=== PATIENT | female | born 2000 | race Caucasian/White ===

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

== ENCOUNTER 2020-02-15 08:47 | Outpatient (CLI) | payer OTHER, SELFPAY ==
--- NOTE | ~2020-02-15 | US_ITS ---
EXAMINATION: US pelvic complete w TV DATE: 02/15/2020 10:03 INDICATION: Follow-up right adnexal cyst Comparison:12/06/2019 TECHNIQUE: Multiple transabdominal and endovaginal sonographic images of the pelvis performed. FINDINGS: The uterus measures 7.8 x 2.9 x 4.7 cm. The endometrial complex measures 3 mm. The right ovary measures 1.9 x 4.6 x 2.5 cm and the left ovary measures 2.5 x 3.6 x 2 cm. There are small follicles in each ovary. There is no free fluid in the pelvis. There are no abnormal masses seen on either side. IMPRESSION: 1. Normal pelvic ultrasound. Interval resolution of right adnexal cyst. Reviewed, dictated and finalized at location A. [employer]
== END 2020-02-15 08:48 | disposition home or self-care (01) ==
PROVIDERS: PCP Internal Medicine; Visit Provider Internal Medicine
DX: N83.291 Other ovarian cyst, right side (principal); N94.9 Unspecified condition associated with female genital organs and menstrual cycle
CPT/HCPCS: 76830; 76856

== ENCOUNTER 2022-11-13 13:07 | Outpatient (CLI) | payer OTHER, SELFPAY ==
--- NOTE | ~2022-11-13 | US_ITS ---
EXAMINATION: US pelvic complete w TV DATE: 11/13/2022 14:50 INDICATION: Right ovarian cyst Comparison:Ultrasound dated 02/15/2020 TECHNIQUE: Multiple transabdominal and endovaginal sonographic images of the pelvis performed. FINDINGS: The uterus measures 7.1 x 3.9 x 5.4 cm. The endometrial complex measures 8 mm. The right ovary measures 2.1 x 2.8 x 2.9 cm and the left ovary measures 3 x 1.9 x 2.5 cm. There are small follicles in each ovary. Normal doppler signal in both ovaries. There is no free fluid in the pelvis. There are no abnormal masses seen on either side. IMPRESSION: 1. Unremarkable pelvic ultrasound. Reviewed, dictated and finalized at location A.
== END 2022-11-13 13:08 | disposition home or self-care (01) ==
PROVIDERS: PCP Internal Medicine; Visit Provider Nurse Practitioner
DX: N83.201 Unspecified ovarian cyst, right side (principal)
CPT/HCPCS: 76830; 76856

== ENCOUNTER 2023-02-27 08:21 | Emergency (ER) | payer OTHER, SELFPAY ==
[2023-02-27 08:26] VITALS: BP 124/77; PULSE 137; RESP 20; TEMP 39.2; O2SAT 95
[2023-02-27] MEDS: IBUPROFEN 600 MG TABLET PO (09:16)
[2023-02-27 09:46] VITALS: TEMP 36.3
--- NOTE | 2023-02-27 09:58 | ED.FEVER ---
HPI - Fever General Chief Complaint: Fever Stated Complaint: fever Time Seen by Provider: 02/27/23 09:09 Source: patient Mode of arrival: ambulatory Limitations: no limitations History of Present Illness HPI Narrative: This is a 22 year old female that presents to the ER for cold symptoms present over the last couple of days. Reports fever, cough, congestion, sore throat and otalgia. She has been taking OTC medications with little relief. Denies shortness of breath. Related Data Allergies Allergy/AdvReac Type Severity Reaction Status Date / Time No Known Allergies Allergy Unknown Verified 02/27/23 08:28 Review of Systems Review of Systems: CONSTITUTIONAL: Reports fever ENT: Reports congestion, sore throat, and otalgia. RESPIRATORY: Reports cough. Denies dyspnea. All systems reviewed & are unremarkable except as noted in HPI and below PMFSH Past Medical History Medical History (Updated 02/27/23 @ 10:10 by Alma Lara PA-C) No active medical problems Social History Social History (Updated 02/27/23 @ 10:00 by Alma Lara PA-C) Smoking status: Never smoker Exam Narrative: GENERAL: Well-appearing, well-nourished, and in no acute distress. HEAD: Normocephalic, atraumatic. EYES: EOMI. ENT: Nares clear, no rhinorrhea or epistaxis. Mucous membranes moist. Oropharynx with mild tonsillar hypertrophy and redness, no exudate or other lesions. Bilateral TMs pearly garza non-bulging NECK: Supple. No adenopathy or masses. CHEST: Clear to auscultation. No respiratory distress. No wheezes rales or rhonchi HEART: Regular rate and rhythm. No murmur heard. Normal peripheral pulses. EXTREMITIES: Normal range of motion. No edema. SKIN: Warm, dry, no rash. NEURO: No focal deficits. Alert and oriented x3. PSYCH: Normal mood and affect Course ACTIVITIES SPECIALIST/PA Physician Supervision Patient updated on her workup and agrees with plan of care Vital Signs Vital signs: Vital Signs Temperature 102.6 F H 02/27/23 08:26 Pulse Rate 137 H 02/27/23 08:26 Respiratory Rate 20 02/27/23 08:26 Blood Pressure 124/77 02/27/23 08:26 Pulse Oximetry 95 02/27/23 08:26 Oxygen Delivery Room Air 02/27/23 08:26 Temperature 102.6 F H 02/27/23 08:26 Pulse Rate 137 H 02/27/23 08:26 Respiratory Rate 20 02/27/23 08:26 Blood Pressure 124/77 02/27/23 08:26 Pulse Oximetry 95 02/27/23 08:26 Oxygen Delivery Room Air 02/27/23 08:26 MDM - Fever MDM Narrative Medical decision making narrative: Patient presents to the emergency department for cold symptoms present over the last 2 days. Febrile and tachycardic upon arrival, she is nontoxic appearing. Given a dose of Ibuprofen with improvement. Lungs are clear on exam. Patient positive for influenza A. Given 1st dose of Tamiflu in the ED. Instructed on further care viral infection. She is to follow up with primary provider. She was given warnings to return to the ER Differential Diagnosis Differential diagnosis: Likely fever of unknown origin, community acquired pneumonia, viral infection, influenza and other (COVID, RSV, strep) Lab Data Attestation: I reviewed the patient's lab results. Labs: Lab Results 02/27/23 02/27/23 Range/Units 09:19 09:20 Influenza A (RT-PCR) Positive A (Negative) Influenza B (RT-PCR) Negative (Negative) RSV (RT-PCR) Negative (Negative) SARS-CoV-2 RNA (RT-PCR) Negative (Negative) Group A Strep (PCR) Pending Critical Care Time Critical Care Time Critical Care Time: No Discharge Plan Discharge Clinical Impression: Influenza A Patient Disposition: Home, Self-Care Condition: Improved Instructions: Influenza (ED) Additional Instructions: Return to the emergency department for worsening symptoms, or any other concerns Remain well-hydrated, get plenty of rest. Take Tylenol or Motrin [id number] for pain as needed. Flonase for nasal congestion. Zyrtec for runny nose. Lozenge
[2023-02-27 10:07] LABS: Influenza A QL RT-PCR Positive (Negative); Influenza B QL RT-PCR Negative (Negative); RSV RNA, RT-PCR Negative (Negative); SARS-CoV-2 RNA PCR Negative (Negative)
[2023-02-27 10:12] VITALS: BP 130/82; PULSE 110; RESP 17; TEMP 36.3; O2SAT 97
[2023-02-27] MEDS: OSELTAMIVIR PHOSPHATE 75 MG CAPSULE PO (10:12)
[2023-02-27 10:17] VITALS: TEMP 36.3
[2023-02-27 10:17] LABS: Strep Group A RT-PCR NOT DETECTED (Negative)
== END 2023-02-27 10:18 | disposition home or self-care (01) ==
PROVIDERS: Emergency Provider Physician Assistant; PCP Internal Medicine
DX: J10.1 Influenza due to other identified influenza virus with other respiratory manifestations (principal); Z20.822 Contact with and (suspected) exposure to COVID-19
CPT/HCPCS: 87637; 87651; 99283; A9270